=== PATIENT | female | born 1995 | race Caucasian/White ===

== ENCOUNTER 2019-04-27 16:14 | Emergency (ER) | payer BC ==
--- OUTSIDE RECORDS SUMMARY | 2019-04-27 16:22 | XMS REPORT | Continuity of Care Document ---
:1995 External Reference #:[id number] Author Name Danny Dalton MD Address [address] [place] [address] Care Team Providers Name Role Phone Lucy Flores MD Care Team Information Lead Material Handler Unavailable Lucy Flores MD Primary Care Physician Unavailable Payers Date Identification Numbers Payment Provider Subscriber Policy Number: [id number] [facility] penny collins PayID: [id number] [address] [place] [address] Problems Active Problems Provider Date Polycystic ovaries Lucy Flores MD Onset: 09/19/2016 Urinary tract infectious disease John Copeland M.D. Onset: 09/19/2017 Family History Date Family Member(s) Observation Comments Father Atrial Fibrillation Father Hypothyroidism Mother Pacemaker Mother Heart Disease Mother Hypothyroidism Social History Type Date Description Comments Sex Unknown Marital Status Single Occupation Student ADL's/IADL's Independent with all ADL's ETOH Use Rarely consumes alcohol Tobacco Use Start: Unknown Patient denies history of smoking Recreational Drug Use Denies Drug Use Smoking Status Reviewed: 04/02/19 Patient denies history of smoking Allergies, Adverse Reactions, Alerts Description No Known Drug Allergies Medications Active Medications SIG Qnty Indications Ordering Provider Date Rebecca as directed Unknown 3-0.02mg Tablets Spironolactone 1 po bid Unknown 50mg Tablets Victoza inject 1.8 mg Unknown 18mg/3ML Solution subq once daily Pen-Inject History Medications Nitrofurantoin Monohyd 1 tab by mouth 20caps Dinorah, 09/19/2017 - Macro twice a day Sue Lopez 02/09/2018 100mg Capsules Glucophage XR 180tabs Luyc Flores MD 11/24/2016 - 500mg Tablets 09/19/2017 ER 24HR Multivitamin Adult 1 by mouth every 30tabs Lucy Flores MD 09/19/2016 - Tablets day 04/01/2019 Kenn (28) take one tablet 168tabs Lucy Flores MD - daily as 09/19/2017 0.18/0.215/0.25 mg-35 directed on pack mcg Tablets Metformin HCL ER (Osm) 1 Tablet Daily 90tabs Lucy Flores MD - Unknown 1000mg Tablets ER 24HR B Complex 1 daily Unknown - Tablets 02/09/2018 Fiber Complete 1 by mouth every Unknown - Tablets day 02/09/2018 Probiotic Acidophilus 3 daily Unknown - 02/09/2018 Capsules Metformin HCL take 1/2 tab 2 Unknown - 500mg Tablets times daily 12/12/2018 Kenn (28) 1 by mouth every Unknown - day Unknown 0.18/0.215/0.25 mg-35 mcg Tablets Spironolactone 2 daily Unknown - 25mg Tablets 02/09/2018 Mononessa 1 by mouth every Unknown - 0.25-35mg-mcg day mdd 1 mdd 1 02/09/2018 Tablets no refills until seen Lessina Unknown - 0.1-20mg-mcg 12/12/2018 Tablets Medications Administered in Office Medication SIG Qnty Indications Ordering Provider Date Amada Rios, MS, 12/12/2018 Injection [employer], CNM Lucy Lazaro MD 09/26/2017 Injection Lucy Lazaro MD 09/19/2016 Injection Immunizations CPT Code Status Date Vaccine Lot # [id number] Given 09/21/2016 Tdap injection [id number] Given 07/10/2016 Influenza Virus Vaccine Split Virus Use For Individual 3Yr Older Vital Signs Date Vital Result Comment 12/12/2018 8:56am BP Systolic Sitting Left Arm 118 mmHg BP Diastolic Sitting Left Arm 82 mmHg Body Temperature 98.2 F Heart Rate 84 /min reg Height 68.5 inches 5'8.50" Weight 254.00 lb BMI (Body Mass Index) 38.1 kg/m2 BSA (Body Surface Area) 2.27 m2 [place] body weight in kilograms 65 kg O2 % BldC Oximetry 98 % ra 09/26/2017 9:57am BP Systolic Sitting Left Arm 126 mmHg BP Diastolic Sitting Left Arm 85 mmHg Body Temperature 99.7 F Heart Rate 95 /min Respiratory Rate 18 /min Height 68.5 inches 5'8.50" Weight 248.00 lb BMI (Body Mass Index) 37.2 kg/m2 BSA (Body Surface Area) 2.25 m2 [place] body weight in kilograms 65 kg O2 % BldC Oximetry 98 % 09/19/2017 11:22am BP Systolic 143 mmHg BP Diastolic 89 mmHg Heart Rate 112 /min Respiratory Rate 14 /min Height 68.5 inches 5'8.50" Weight 248.25 lb BMI (Body Mass Index) 37.2 kg/m2 BSA (Body Surface Area) 2.25 m2 [place] body weight in kilograms 65 kg O2 % BldC Oximetry 97 % 02/10/2017 2:23pm BP Systolic 145 mmHg BP Diastolic 81 mmHg Heart Rate 104 /min Height 68.5 inches 5'8.50" Weight 240.00 lb BMI (Body Mass Index) 36.0 kg/m2 BSA (Body Surface Area) 2.22 m2 [place] body weight in kilograms 65 kg 09/21/2016 9:21am BP Systolic 124 mmHg BP Diastolic 80 mmHg Heart Rate 96 /min Height 68.5 inches 5'8.50" Weight 241.00 lb BMI (Body Mass Index) 36.1 kg/m2 BSA (Body Surface Area) 2.22 m2 09/19/2016 8:35am BP Systolic 122 mmHg BP Diastolic 76 mmHg Heart Rate 84 /min Height 68.5 inches 5'8.50" Weight 240.00 lb BMI (Body Mass Index) 36.0 kg/m2 BSA (Body Surface Area) 2.22 m2 [place] body weight in kilograms 65 kg Results Test Date Facility Test Result H/L Range Note CBC 12/15/2018 [facility] [place] Blood 8.5 K/uL Normal 3.1-10.7 1 W/Automated [address] [place] [address] [phone] Red Blood Count 4.89 M/uL Normal 3.90-5.40 Hemoglobin 15.2 gm/dL Normal 11.6-15.8 Hematocrit 46.1 % Normal 36.0-46.1 Mean Cell Volume 94.3 fl Normal 80.9-99.0 Mean Corpuscular HGB 31.1 pg Normal 25.9-32.7 Mean Corpuscular HGB Conc 33.0 g/dL Normal 30.8-34.3 Platelet Count 321 K/uL Normal 155-360 Red Cell Distri Width SD 42.5 fl Normal 36-47 Red Cell Distri Width %CV 12.6 % Normal 11.7-14.4 Mean Platelet Volume 9.3 fL Normal 8.9-12.4 Neut% 64.8 % Normal 40.4-72.8 Lymph % 24.8 % Normal 20.0-42.0 Waldo % 9.6 % Normal 4.3-13.2 Eo% 0.4 % Normal 0.0-6.6 Bas% 0.4 % Normal 0.0-1.1 Neut# 5.50 K/uL Normal 1.8-7.0 Lymph # 2.10 K/uL Normal 1.0-4.0 Waldo # 0.81 K/uL Normal 0.3-0.9 Eos # 0.03 K/uL Normal 0.0-0.5 Baso # 0.03 K/uL Normal 0.0-0.1 Laboratory test 12/15/2018 [facility] Rubella IgG 1.48 index Immune 2 finding [facility] Antibody >0.99 [place] [address] [phone] Rubeola Antibodies, Igg >300.0 AU/mL Immune >29.9 3 Urine Culture 09/19/2017 [facility] Urine Culture ESCHERICHIA COLI Abnormal 4 [address] [place] [address] [phone] Quantity > 100,000 CFU/mL 5 Urine Culture URETHRAL MONIKA Quantity 10,000 - 50,000 <SEE NOTE> 6 Escherichia Coli 09/19/2017 [facility] Nitrofurantoin 32 Susceptible [address] [place] [address] [phone] Trimethoprim/Sulfamethoxazole <=20 Susceptible Ampicillin 8 Susceptible Cefazolin <=4 Susceptible Ampicillin/Sulbactam <=2 Susceptible Ciprofloxacin <=0.25 Susceptible Piperacillin/Tazobactam <=4 Susceptible Ceftazidime <=1 Susceptible Ceftriaxone <=1 Susceptible Cefepime <=1 Susceptible Levofloxacin <=0.12 Susceptible Imipenem <=0.25 Susceptible Gentamicin <=1 Susceptible Tobramycin <=1 Susceptible Laboratory test 02/11/2017 [facility] Thyroid 1.29 Normal 0.30-4.[address] Stim uIU/[place] [address] Hormone [phone] Free T4 1.48 ng/dL High 0.76-1.46 Comprehensive 02/11/2017 [facility] Glucose 87 mg/dL Normal 74-106 Metabolic Panel [address] [place] [address] [phone] BUN 9 mg/dL Normal 7-18 Creatinine 0.8 mg/dL Normal 0.6-1.3 Glom Filtration Rate, Estimate >60 mL/min >60 If >60 mL/min >60 8 BUN/Creat 11.2 ratio Sodium 142 mmol/L Normal 136-145 Potassium 4.1 mmol/L Normal 3.5-5.1 Chloride 108 mmol/L High 98-107 Carbon Dioxide 30 mmol/L Normal 21-32 Anion Gap 4 mEq/L Low 8-16 Calcium 9.2 mg/dL Normal 8.5-10.1 Total Protein 7.4 g/dL Normal 6.4-8.2 Albumin 3.6 g/dL Normal 3.4-5.0 Globulin 3.8 g/dL Normal 1.9-4.3 Alb/Glob 0.9 ratio Bilirubin,Total 0.3 mg/dL Normal 0.2-1.0 Sgot/Ast 10 U/L Low 15-37 9 SGPT/Alt 23 U/L Normal 12-78 Alkaline Phosphatase 94 U/L Normal 45-117 Glycohemoglobin 02/11/2017 [facility] Glycohemoglobin 5.3 % Normal 4.2-6.[address] (A1c) [place] [address] [phone] eAG 105 mg/dL Laboratory test finding 02/11/2017 [facility] Magnesium 2.3 Normal 1.8-2.[address] mg/[place] [address] [phone] Methylenetetrahydrofolate 02/11/2017 [facility] MTHFR,Dna (SEE [address] Analysis NOTE) [place] [address] [phone] Additional Information (SEE NOTE) 12 Laboratory 02/11/2017 [facility] Cortisol,Random 23.2 . 13 test finding [address] g/[place] [address] [phone] CBS 02/11/2017 [facility] White Blood Count 7.6 K/uL Normal 3.1- W/Automated [address] 10.7 Diff [place], [place] [id number] [phone] Red Blood Count 4.74 M/uL Normal 3.90-5.40 Hemoglobin 14.7 gm/dL Normal 11.6-15.8 Hematocrit 44.1 % Normal 36.0-46.1 Mean Cell Volume 93.0 fl Normal 80.9-99.0 Mean Corpuscular HGB 31.0 pg Normal 25.9-32.7 Mean Corpuscular HGB Conc 33.3 g/dL Normal 30.8-34.3 Platelet Count 332 K/uL Normal 150-400 Red Cell Distri Width SD 41.8 fl Normal 3-47 Red Cell Distri Width %CV 12.4 % Normal 11.7-14.4 Mean Platelet Volume 9.6 fL Normal 8.9-12.4 Neut% 50.8 % Normal 40.4-72.8 Lymph % 39.7 % Normal 20.0-42.0 Waldo % 7.9 % Normal 4.3-13.2 Eo% 0.9 % Normal 0.0-6.6 Bas% 0.7 % Normal 0.0-1.1 Neut# 3.88 K/uL Normal 1.8-7.0 Lymph # 3.03 K/uL Normal 1.0-4.0 Waldo # 0.60 K/uL Normal 0.3-0.9 Eos # 0.07 K/uL Normal 0.0-0.5 Baso # 0.05 K/uL Normal 0.0-0.1 1 Z00.00 2 Non-immune <0.90 Equivocal 0.90 - 0.99 Immune >0.99 Performed at: RN - [facility] [address] [id number] Elementary Substitute Teacher: Naya Estes MD, Phone: [phone] 3 Negative <25.0 Equivocal 25.0 - 29.9 Positive >29.9 Presence of antibodies to Rubeola is presumptive evidence of immunity except when acute infection is suspected. Performed at: - [facility] [place] [address] [place], [place] [id number] Elementary Substitute Teacher: Naya Estes MD, Phone: [phone] 4 ESCHERICHIA COLI 5 > 100,000 CFU/mL 6 10,000 - 50,000 CFU/mL 7 E28.2 R63.5 D64.9 R03.0 D64.9 8 Note: Persistent reduction for 3 months or more in an eGFR <60 mL/min/1.73 m2 defines CKD. Patients with eGFR values >/=60 mL/min/1.73 m2 may also have CKD if evidence of persistent proteinuria is present. The original MDRD equation for estimated GFR is not valid for patients less than 18 years of age. Additional information may be found at www.kdoqi.org. 9 Values below the stated reference ranges of AST and ALT can be seen in normal populations. Clinical correlation is suggested. 10 Elevated levels of HbA1c suggest the need for more aggressive treatment of glycemia. The [place] [employer] recommends that a primary goal of therapy should be a HbA1c of <7% and that physicians should re-evaluate the treatment regimen in patients with HbA1c values consistently >8%. 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 The MTHFR C677T variant was not identified. This combination of results is not associated with an increased risk of hyperhomocysteinemia, venous thrombosis, coronary artery disease, or recurrent loss. However, hyperhomocysteinemia may also occur due to mutations in enzymes other than MTHFR that are involved in homocysteine metabolism, or arise due to acquired factors. In the evaluation of vascular and obstetric risk, consider measuring fasting homocysteine. Other risk factors may be detected through systematic clinical laboratory analysis. 12 Additional Information: Methylenetetrahydrofoloate reductase (MTHFR) is a ortiz enzyme in the folate pathway and is responsible for the metabolism of homocysteine. There are two common variants in the MTHFR gene, c.655c>T (p.Utw633Yqmz), referred to as C677T, and c.1286A>C (p.Maq661Hcw), referred to as J2619A. Individuals homozygous for C677T (two copies of the variant), have decreased activity of the MTHFR enzyme and a predisposition to hyperhomocysteinemia, particularly when deficient in folate. Hyperhomocysteinemia is a risk factor for venous thrombosis and coronary artery disease and is associated with an increased risk of open neural tube defects. The C677T variant does not independently increase risk of these conditions in the absence of hyperhomocysteinemia. The A0353E variant is not associated with elevated homocysteine levels unless a C677T variant is also present; however, the clinical significance of heterozygosity for both C677T and I5543E is controversial. Population data suggest that these two variants are not present on the same chromosome, but rare exceptions have been reported of triple variant MTHFR genotypes (ie. homozygous for one variant and heterozygous for the other). Homozygosity for C677T has an estimated frequency of 10% to 15% in Caucasians and 25% in Hispanics. Additional information: Dietary folic acid, B6 and B12 supplementation has been suggested to lower homocysteine levels in some people. Folic acid supplementation has been shown to reduce the occurrence of neural tube defects. Genetic counselors are available for health care providers to discuss results at [phone]. Methodology: DNA analysis of the MTHFR gene was performed by PCR amplification followed by restriction analysis. The diagnostic sensitivity is >99% for both. Molecular-based testing is highly accurate, but as in any laboratory test, rare diagnostic errors may occur. All test results must be combined with clinical information for the most accurate interpretation. This test was developed and its performance characteristics determined by [facility]. It has not been cleared or approved by the Food and Drug Administration. References: Damaris LD, Roberto Carlos Q. Am J Epidemiol 2000; 151(9):862-877. Sai MM, Andrzej JA. Arch Pathol Lab Med 2007; 131(6):872-884. Frosst P et al. Erika Marnie 1995; 10(1):111-113. Luiz SE et al. Marnie Med 2013; 15(2):153-156. [place] C et al. Obstet Gynecol 2011; 118(3):730-740. Brandon B et al. Eur J Epidemiol 2013; 28(8):621-647. uYe Fofana, PhD, FACMG Jessica Hinton, PhD, FACMG Alexsandra Henao, PhD, FACMG Vaughn KelleyS., PhD, FACMG Dariela Bai, PhD, FACMG Tylor Brooke, PhD, FACMG Wilton Landin, PhD, FACMG Testing Performed By: [facility], [place] [address] 13 Cortisol AM 6.2 - 19.4 Cortisol PM 2.3 - 11.9 Performed at: RN - [facility] [address] [id number] Elementary Substitute Teacher: Naya Estes MD, Phone: [phone] Procedures Date Code Description Status 04/02/2019 18758 Eye Exam Est Patient Comprehensive Completed 02/09/2018 65183 Eye Exam New Patient Comprehensive Completed Encounters Type Date Location Provider Dx Diagnosis Office Visit 12/14/2018 Primary Care Nurse Internal Z11.1 Encounter for 10:00a Office Med screening for respiratory tuberculosis Office Visit 12/12/2018 Primary Care Elisa Z00.00 Encntr for general 9:00a Office [place] Amada, adult medical exam [employer]VIEWER[employer]C, CNM w/o abnormal findings E28.2 Polycystic ovarian syndrome M20.5x9 Other deformities of toe(s) (acquired), unspecified foot Z11.1 Encounter for screening for respiratory tuberculosis Office Visit 09/28/2017 11:30a Primary Care Lucy Flores, Z11.1 Encounter for Office MD screening for respiratory tuberculosis Office Visit 09/19/2017 11:30a Primary Care Dinorah N39.0 Urinary tract Office Sue Lopez infection, site not specified Office Visit 02/10/2017 2:20p Primary Care Lucy Flores, E28.2 Polycystic ovarian Office MD syndrome R63.5 Abnormal weight gain Office Visit 09/21/2016 9:30a Primary Care Lucy Flores, R76.11 Nonspecific Office MD reaction to skin test w/o active tuberculosis Z23 Encounter for immunization Office Visit 09/19/2016 8:40a Primary Care Lucy Flores, E28.2 Polycystic ovarian Office MD syndrome Z02.0 Encounter for exam for admission to [facility] Z11.1 Encounter for screening for respiratory tuberculosis Plan of Treatment 04/02/2019 - Danny Dalton, MDD31.31 Benign neoplasm of right choroidComments:- chrpe, inferior right eye- iris nevus temporally, 1 mm right eye; no involvement of angle- no signof subretinal fluid or orange pigmentFollow up:1-2 years examH04.123 Dry eye syndrome of bilateral lacrimal glandsComments:- if bothersome, please consider:- warm compresses- artificial tears both eyes- consider ointment atnight- can consider punctal occlusion or mpythzgaS23.13 Myopia, bilateralComments:- provided updated rx for glasses- vision with correction 20/20 in each eye
[2019-04-27 16:27] VITALS: BP 120/75
--- NOTE | 2019-04-27 16:39 | UC ---
Respiratory Complaint HPI - HPI Summary HPI Summary: Starting pt complaining of a bad sore throat and coughing started yesterday. Pt states her symptoms have not improved and when she was younger she would progress into pneumonia quickly. - History of Current Complaint Chief Complaint: UCGeneralIllness Stated Complaint: COUGH Time Seen by Provider: 04/27/19 16:23 Hx Obtained From: Patient Hx Last Menstrual Period: with in last 2 weeks ?: No Onset/Duration: Sudden Onset, Lasting Days Timing: Constant Severity Initially: Moderate Severity Currently: Moderate Pain Intensity: 4 Character: Cough: Nonproductive Aggravating Factors: Exertion, Deep Breaths, Other - cold fluids Alleviating Factors: Nothing Associated Signs And Symptoms: Positive: URI - Allergies/Home Medications Allergies/Adverse Reactions: Allergies Allergy/AdvReac Type Severity Reaction Status Date / Time No Known Allergies Allergy Verified 04/27/19 16:27 Home Medications: Home Medications Ethinyl Estradiol/Drospirenone [Rebecca 28 Tablet] 1 each PO DAILY 04/27/19 [ History Confirmed 04/27/19] Liraglutide (NF) [Victoza (NF)] 1.8 mg SUBCUT DAILY 04/27/19 [History Confirmed 04/27/19] Spironolactone 50 mg PO BID 04/27/19 [History Confirmed 04/27/19] PMH/Surg Hx/FS Hx/Imm Hx Previously Healthy: Yes - Surgical History Surgical History: None - Family History Known Family History: Positive: Respiratory Disease - Social History Alcohol Use: Rare Substance Use Type: None Smoking Status (MU): Never Smoked Tobacco Review of Systems All Other Systems Reviewed And Are Negative: Yes ENT: Positive: Sore Throat Respiratory: Positive: Cough Is Patient Immunocompromised?: No Physical Exam Triage Information Reviewed: Yes Appearance: Well-Appearing, Well-Nourished, Pain Distress Vital Signs: Initial Vital Signs Temp 97.9 F 04/27/19 16:22 Pulse 100 04/27/19 16:22 Resp 16 04/27/19 16:22 BP 120/75 04/27/19 16:22 Pulse Ox 99 04/27/19 16:22 Vital Signs Reviewed: Yes Eye Exam: Normal ENT: Positive: Pharyngeal erythema - with PND, TM bulging - bilateral, Hoarse voice Dental Exam: Normal Neck exam: Normal Respiratory Exam: Normal Respiratory: Positive: Chest non-tender, Lungs clear, Normal breath sounds, Other: - barky cough Cardiovascular Exam: Normal Cardiovascular: Positive: RRR, No Murmur, Pulses Normal Abdominal Exam: Normal Bowel Sounds: Positive: Present Musculoskeletal Exam: Normal Neurological Exam: Normal Psychological Exam: Normal Skin Exam: Normal Respiratory Course/Dx - Course Course Of Treatment: hx obtained, exam performed ,meds reviewed, treated for bronchospasm - Differential Dx/Diagnosis Differential Diagnosis/HQI/PQRI: Bronchitis, Lower Resp Infection Provider Diagnosis: Bronchospasm, acute Discharge - Sign-Out/Discharge Documenting (check all that apply): Patient Departure All imaging exams completed and their final reports reviewed: No Studies - Discharge Plan Condition: Stable Disposition: HOME Prescriptions: Albuterol inh POWDER (NF) [Proair Respiclick] 1 puff INH Q4H #1 mdi predniSONE [Prednisone 20 MG TAB] 40 mg PO DAILY #10 tablet Patient Education Materials: Bronchospasm (ED) Referrals: Lucy Flores MD [Primary Care Provider] - Additional Instructions: 1. take the medication as prescribed. 2. COntinue with the claritin and vicks 3. Warm fluids to help soothe 4. Follow up if symtpoms start to worsen - Billing Disposition and Condition Condition: STABLE Disposition: Home - Attestation Statements Provider Attestation: This patient was not seen by me. I was available for consult. ROMMEL
== END 2019-04-27 16:49 | disposition home or self-care (01) ==
LOC: UCCORT 16:14
DX: J98.01 Acute bronchospasm (principal)
CPT/HCPCS: 99202; G0463